=== PATIENT | male | born 1980 | race Caucasian/White ===

== ENCOUNTER 2019-08-02 16:00 | Emergency (ER) | payer OTHER, SELFPAY ==
[2019-08-02 16:21] VITALS: BP 133/83; PULSE 82; RESP 18; TEMP 36.8; O2SAT 97; BMI 36.6
--- NOTE | 2019-08-02 16:27 | DI.RAD.S_ITS ---
PROCEDURE: XR FINGER LT MIN 2V INDICATIONS: INJURY TECHNIQUE: AP hand, 2 views of the left 2nd finger(s) acquired. COMPARISON: None. FINDINGS: Bones: No fractures or dislocations. No suspicious bony lesions. Soft tissues: No suspicious soft tissue calcifications. IMPRESSION: No acute fracture. No osseous lesion. If symptoms and/or clinical suspicion for pathology persist, further assessment with repeat, or advanced imaging (e.g., CT, MRI, or bone scan) may be helpful for further assessment. Dictated by: Conner Babin M.D. on 08/02/2019 at 16:43 Approved by: Conner Babin M.D. on 08/02/2019 at 16:43
--- NOTE | 2019-08-02 19:05 | ED.WOUNDLAC ---
HPI - Wound/Laceration <CRISTHIAN Justin - Last Filed: 08/02/19 21:16> General Chief Complaint: Wound/Laceration Stated Complaint: laceration to index finger at work Time Seen by Provider: 08/02/19 18:44 Source: patient Mode of arrival: Ambulatory Limitations: no limitations History of Present Illness HPI narrative: 38-year-old male presents emergency department complaining of a laceration to his left 2nd digit. He states he was working on a car and pinched it between to car parts. Patient had tetanus shot more than 10 years ago. Patient states the bleeding was controlled with a pressure dressing. He reports being able to extend and flex his finger completely. Patient does report some tingling around the area of laceration. He denies any fevers, chills, nausea, vomiting, diarrhea, chest pain, shortness of breath, or other concerns. Related Data Allergies Allergy/AdvReac Type Severity Reaction Status Date / Time No Known Drug Allergies Allergy Verified 08/02/19 16:21 Review of Systems <CRISTHIAN Justin - Last Filed: 08/02/19 21:16> Review of Systems Narrative: REVIEW OF SYSTEMS: GENERAL: Denies fever or chills. HENT: Denies head trauma. EYE: Denies double vision or vision loss. CARDIOVASCULAR: Denies syncope. MUSCULOSKELETAL: Denies weakness, or deformities. INTEGUMENTARY: Complains of laceration to left 2nd digit, see HPI. NEURO: Denies numbness or tingling. Patient History <CRISTHIAN Justin - Last Filed: 08/02/19 21:16> Medical History No significant family history (Acute) Social History Smoking Status: Never smoker Smoking Status: Never smoker alcohol intake frequency: 0-2 drinks per day Substance Use Type: does not use Exam <CRISTHIAN Justin - Last Filed: 08/02/19 21:16> Initial Vital Signs Initial Vital Signs: Vital Signs Temperature 98.2 F 08/02/19 16:21 Pulse Rate 82 08/02/19 16:21 Respiratory Rate 18 08/02/19 16:21 Blood Pressure 133/83 08/02/19 16:21 Pulse Oximetry 97 08/02/19 16:21 PHYSICAL EXAMINATION: GENERAL: Well groomed, alert, and cooperative. Answers questions promptly and appropriately. Vital signs noted. HENT: Normocephalic, atraumatic. RESPIRATORY: Normal respiratory rate, trachea midline, airway patent. No stridor, nasal flaring or accessory muscle use. MUSCULOSKELETAL: Normal gait and coordination. Equal tone and mass bilaterally. EXTREMITIES: CMS intact. Moves all extremities. SKIN: Warm, dry, soft, appropriate color for ethnicity. 2 cm laceration to palmar aspect of MIP of 2nd digit. Patient has full range of motion including full flexion and extension against resistance of finger. NEURO: Alert and Oriented X 3. Good coordination. Light touch sensation intact to anterior, lateral, medial, and posterior surface of finger. PSYCH: Appropriate affect and mood. <Jayson Dotson DO - Last Filed: 08/03/19 05:21> Initial Vital Signs Initial Vital Signs: Vital Signs Temperature 98.2 F 08/02/19 16:21 Pulse Rate 82 08/02/19 16:21 Respiratory Rate 18 08/02/19 16:21 Blood Pressure 133/83 08/02/19 16:21 Pulse Oximetry 97 08/02/19 16:21 Procedures <CRISTHIAN Justin - Last Filed: 08/02/19 21:16> Laceration Repair Laceration 1: Site: hand Side (If applicable): left Size (cm): 2 Description: linear Depth: simple, single layer Local Anesthetic: lidocaine 1% Amount of anesthesia used (mL): 6 Pre-repair: wound explored Skin layer closed with: nylon Size (cm): 4-0 Number of sutures: 3 Technique: simple, interrupted Nerve Block Nerve Block 1: Time out performed: Yes Local Anesthetic: lidocaine 1% Amount of anesthesia used (mL): 6 Side: left Nerve Blocks: digital Procedure Successful: Yes Patient Tolerated Procedure: Well Complications: none Course <CRISTHIAN Justin - Last Filed: 08/02/19 21:16> Course Course Narrative: After extensive irrigation with 300ml of normal saline, patient's laceration was repaired with 3 seizures as charted below. Dressing was applied, bacitracin and gauze, and foam splint was used. Tdap was updated. Orders Ordered: Discontinued Medications Bacitracin (Bacitracin) 1 applic TOP NOW ONE Stop: 08/02/19 19:32 Last Admin: 08/02/19 19:49 Dose: 1 applic Documented by: LREED Diphtheria/Tetanus/Acell Pertussis (Adacel) 0.5 ml IM .ONCE ONE Stop: 08/02/19 17:38 Last Admin: 08/02/19 19:48 Dose: 0.5 ml Documented by: LREED Lidocaine/Sodium Bicarbonate (Buffered Lidocaine 10 Ml Syr) 10 ml INJ NOW ONE Stop: 08/02/19 18:55 Reevaluation(s) Reevaluation #1: Patient neurovascular status re-evaluated after sutures, CMS remains intact. Full range of motion of finger Vital Signs Vital signs: Vital Signs - 8 hr 08/02/19 16:21 08/02/19 20:06 Temperature 98.2 F Pulse Rate 82 74 Respiratory Rate 18 16 Blood Pressure 133/83 128/79 Pulse Oximetry 97 100 <Jayson Dotson DO - Last Filed: 08/03/19 05:21> Orders Ordered: Discontinued Medications Bacitracin (Bacitracin) 1 applic TOP NOW ONE Stop: 08/02/19 19:32 Last Admin: 08/02/19 19:49 Dose: 1 applic Documented by: LREED Diphtheria/Tetanus/Acell Pertussis (Adacel) 0.5 ml IM .ONCE ONE Stop: 08/02/19 17:38 Last Admin: 08/02/19 19:48 Dose: 0.5 ml Documented by: LREED Lidocaine/Sodium Bicarbonate (Buffered Lidocaine 10 Ml Syr) 10 ml INJ NOW ONE Stop: 08/02/19 18:55 Vital Signs Vital signs: Vital Signs - 8 hr 08/02/19 16:21 08/02/19 20:06 Temperature 98.2 F Pulse Rate 82 74 Respiratory Rate 18 16 Blood Pressure 133/83 128/79 Pulse Oximetry 97 100 MDM - Wound/Laceration <CRISTHIAN Justin - Last Filed: 08/02/19 21:16> Medical Records Attestation: I reviewed the patient's medical records. Lab Data Attestation: I reviewed the patient's lab results. Imaging Data Chest x-ray: Radiologist's Impression: [address] [address] XRay Report Signed Patient: Narendra Franks [facility]#: [id number] : 1980Acct:[id number] Age/Sex: 38 / MDate of Service: 08/02/19 Loc: ED Accession Number: [id number] Procedure: XR finger LT min 2V Ordering Provider: Jyothi Ware D.O. PROCEDURE: XR FINGER LT MIN 2V INDICATIONS: INJURY TECHNIQUE: AP hand, 2 views of the left 2nd finger(s) acquired. COMPARISON: None. FINDINGS: Bones: No fractures or dislocations. No suspicious bony lesions. Soft tissues: No suspicious soft tissue calcifications. IMPRESSION: No acute fracture. No osseous lesion. If symptoms and/or clinical suspicion for pathology persist, further assessment with repeat, or advanced imaging (e.g., CT, MRI, or bone scan) may be helpful for further assessment. Dictated by: Conner Babin M.D. on 08/02/2019 at 16:43 Approved by: Conner Babin M.D. on 08/02/2019 at 16:43 [facility] Narrative Medical decision making narrative: 38-year-old male with a simple laceration repair, x-ray negative for fracture, full range of motion intact against resistance and little suspicion of tendon injury. Sutures were placed after wound irrigation, patient was instructed extensively on how to care for infection to prevent. He was encouraged to follow up with his primary care provider in 5-7 days for removal of sutures. Patient verbalized agreement with plan of care. Discharge Plan Departure Patient Disposition: Home Clinical Impression: Laceration Discharge Date/Time: 08/02/19 20:06 Instructions: DI for Laceration Repair Activity Restrictions/Additional Instructions: Thank you for entrusting me with your care today. As discussed, 3 sutures were placed in your laceration. Your x-rays are negative for any fractures. Leave the dressing in place for the next 24 hours. After that, you may wash the area and apply bacitracin or Neosporin. Please leave the splint in place for the next 3 days. Your sutures will need to be removed in 5-7 days. Monitor the area for signs of infection such as purulent discharge, increased erythema, increased pain--if these occur please be evaluated as they are signs of infection. Return emergency department for new or worsening symptoms such as chest pain, syncope, uncontrollable vomiting, high fevers, or other concerns.
[2019-08-02] MEDS: TET,DIPH,PERTUSS(ACELL),VAC/PF 0.5 ML SYRINGE IM (19:48)
[2019-08-02] MEDS: BACITRACIN OINT 0.9 GM PCKT 1 APPLIC TOP (19:49)
--- NOTE | 2019-08-02 20:04 | PC.NURSE ---
Wound closed with 3 sutures. Cleansed with NS and gauze. Bacitracin applied and large bandaid. Splinted with finger splint per orders. CMS intact. Tdap updated IM, tolerated well. Extra dressings given upon discharge. Verbalizes understanding of watching for s/sx of infection and suture removal in 5-7 days.
[2019-08-02 20:06] VITALS: BP 128/79; PULSE 74; RESP 16; O2SAT 100
== END 2019-08-02 20:06 | disposition home or self-care (01) ==
PROVIDERS: Emergency Provider Nurse Practitioner
DX: S61.211A Laceration without foreign body of left index finger without damage to nail, initial encounter (principal); W23.0XXA Caught, crushed, jammed, or pinched between moving objects, initial encounter; Z23 Encounter for immunization
CPT/HCPCS: 12001; 64450; 73140; 90471; 99282; 99283; 90715

== ENCOUNTER → 2020-10-27 07:36 | Outpatient (CLI) | payer OTHER, SELFPAY ==
[2020-10-27] MEDS: COVID-19 VACC #1, MRNA(MOD) 100 MCG/0.5 ML VIAL IM (07:42)
== END ==
PROVIDERS: Visit Provider Internal Medicine
DX: Z23 Encounter for immunization (principal)
CPT/HCPCS: 0011A; 91301

== ENCOUNTER → 2020-11-24 16:23 | Outpatient (CLI) | payer OTHER, SELFPAY ==
[2020-11-24] MEDS: COVID-19 VACC #2, MRNA(MOD) 100 MCG/0.5 ML VIAL IM (16:30)
== END ==
PROVIDERS: Visit Provider Internal Medicine
DX: Z23 Encounter for immunization (principal)
CPT/HCPCS: 0012A; 91301